=== PATIENT | male | born 1970 | race Hispanic/Latino ===

== ENCOUNTER 2022-03-07 08:26 | Emergency (ER) | payer SELFPAY ==
[2022-03-07] MEDS ORDERED: NA CHLORIDE 0.9% 1,000 ML ONE (08:57)
[2022-03-07] MEDS ORDERED: ONDANSETRON 4 MG/2 ML VIAL ONE (08:57)
[2022-03-07] MEDS ORDERED: DICYCLOMINE HCL 10 MG CAP ONE (08:57)
[2022-03-07 08:58] LABS: Absolute Lymphocytes (CBC) 0.6 K/uL (0.7-4.9); Hematocrit 46.7 % (39.6-49.0); Lymphocytes % 7.3 % (15.3-44.8); MPV 9.1 fL (7.6-11.3); RBC Red Blood Cell Count 5.02 M/uL (4.33-5.43)
[2022-03-07 09:38] LABS: Potassium 3.4 mmol/L (3.5-5.1)
[2022-03-07] MEDS ORDERED: Ringers Lactate 1,000 ML IV ONE (10:14)
--- NOTE | 2022-03-07 11:58 | ER ---
Nurse's Notes [facility] Name: Niall Alvarenga Age: 51 yrs Sex: Male : 1970 Arrival Date: 03/07/2022 Time: 08:26 Bed 7 Private MD: Diagnosis: Volume depletion, unspecified;Rhabdomyolysis Presentation: 03/07 08:34 Chief complaint: Patient states: vomiting last night and this morning and has abd pain iw from vomiting, felt feverish. Coronavirus screen: Client presents with at least one sign or symptom that may indicate coronavirus-19. Ebola Screen: Patient negative for fever greater than or equal to 101.5 degrees Fahrenheit, and additional compatible Ebola Virus Disease symptoms Patient denies exposure to infectious person. Patient denies travel to an Ebola-affected area in the 21 days before illness onset. No symptoms or risks identified at this time. Initial Sepsis Screen: Does the patient meet any 2 criteria? No. Patient's initial sepsis screen is negative. Does the patient have a suspected source of infection? No. Patient's initial sepsis screen is negative. Risk Assessment: Do you want to hurt yourself or someone else? Patient reports no desire to harm self or others. Onset of symptoms was March 06, 2022. 08:34 Method Of Arrival: Wheelchair iw 08:34 Acuity: DIRK 3 iw Historical: - Allergies: 08:35 Demerol; iw - Home Meds: 08:35 None [Active]; iw - PMHx: 08:35 colon cancer; iw - PSHx: 08:35 colon resection; iw - Immunization history:: Client reports receiving the 2nd dose of the Covid vaccine. - Social history:: Smoking status: Patient reports the use of cigarette tobacco products, smokes one-half pack cigarettes per day. Screenin:50 Abuse screen: Denies threats or abuse. Nutritional screening: No deficits noted. aa5 Tuberculosis screening: No symptoms or risk factors identified. Fall Risk None identified. Assessment: 08:45 General: Appears uncomfortable, Behavior is calm, cooperative. Pain: Complains of pain aa5 in abdomen Pain currently is 6 out of 10 on a pain scale. Quality of pain is described as crampy, Pain began 1 day ago. Is continuous. Neuro: Level of Consciousness is awake, alert, obeys commands, Oriented to person, place, time, situation. Cardiovascular: Heart tones S1 S2 present Rhythm is regular. Respiratory: Airway is patent Respiratory effort is even, unlabored, Respiratory pattern is regular, symmetrical. GI: Abdomen is flat, non-distended, Bowel sounds present X 4 quads. Abd is soft and non tender X 4 quads. Reports nausea, vomiting. : No signs and/or symptoms were reported regarding the genitourinary system. EENT: No signs and/or symptoms were reported regarding the EENT system. Derm: Skin is dry, Skin is normal, Skin temperature is warm. Musculoskeletal: Range of motion: intact in all extremities. 09:40 Reassessment: Pt sleeping, pt easily awaken by verbal stimuli, pt states feeling aa5 better, denies nausea, denies pain. . General: Appears comfortable. Neuro: Level of Consciousness is awake, alert, obeys commands, Oriented to person, place, time, situation. Respiratory: Airway is patent Respiratory effort is even, unlabored, Respiratory pattern is regular, symmetrical. Derm: Skin is dry, Skin is normal, Skin temperature is warm. 10:10 Reassessment: Pt sleeping, respirations relaxed, skin is normal/warm/dry. . aa5 11:00 Reassessment: Patient appears in no apparent distress at this time. Patient and/or jd3 family updated on plan of care and expected duration. Pain level reassessed. Patient is alert, oriented x 3, equal unlabored respirations, skin warm/dry/pink. pt resting in bed. PO fluids give to pt for PO challenge. no reports of nausea at this time. Vital Signs: 08:34 BP 148 / 86; Pulse 56; Resp 16; Temp 98.8(O); Pulse Ox 100% on R/A; Weight 69.4 kg; iw Height 5 ft. 4 in. (162.56 cm); 09:41 BP 140 / 88; Pulse 50; Resp 14 S; Pulse Ox 100% on R/A; aa5 11:00 BP 138 / 82; Pulse 55; Resp 18 S; Pulse Ox 100% on R/A; jd3 12:17 BP 131 / 81; Pulse 80; Resp 18; Temp 98.3; Pulse Ox 99% on R/A; bh1 08:34 Body Mass Index 26.26 (69.40 kg, 162.56 cm) iw ED Course: 08:26 Patient arrived in ED. rg4 08:32 Ayleen Garnett, [facility]. kb 08:32 Memo Tejeda MD is Attending Physician. kb 08:32 Milo Nelson MD is Attending Physician. kb 08:35 Triage completed. iw 08:43 Marisol Garsia, RN is Primary Nurse. aa5 08:45 Patient has correct armband on for positive identification. Bed in low position. Call aa5 light in reach. Side rails up X 1. Pulse ox on. NIBP on. 08:48 Initial lab(s) drawn, by me, sent to lab. Inserted saline lock: 20 gauge in right aa5 antecubital area, using aseptic technique. Blood collected. 12:17 IV discontinued, intact, bleeding controlled, No redness/swelling at site. bh1 12:20 No provider procedures requiring assistance completed. bh1 12:20 Arm band placed on. bh1 Administered Medications: 08:50 Drug: NS 0.9% 1000 ml Route: IV; Rate: 1000 ml; Site: right antecubital; aa5 09:40 Follow up: IV Status: Completed infusion; IV Intake: 1000ml aa5 12:21 Follow up: IV Status: Completed infusion; IV Intake: 1000ml bh1 08:50 Drug: Zofran (Ondansetron) 4 mg Route: IVP; Site: right antecubital; aa5 08:55 Follow up: Response: No adverse reaction aa5 08:52 Drug: Bentyl (dicyclomine) 20 mg Route: PO; aa5 09:40 Follow up: Response: No adverse reaction; Marked relief of symptoms aa5 10:10 Drug: Lactated Ringers Solution 1000 ml Route: IV; Rate: 1 bolus; Site: right aa5 antecubital; 12:20 Follow up: IV Status: Completed infusion; IV Intake: 2000ml bh1 Medication: 12:20 VIS not applicable for this client. bh1 Intake: 09:40 IV: 1000ml; Total: 1000ml. aa5 12:20 IV: 2000ml; Total: 3000ml. bh1 12:21 IV: 1000ml; Total: 4000ml. bh1 Outcome: 11:58 Discharge ordered by . kb 12:16 Discharged to home ambulatory. bh1 12:16 Discharged to home ambulatory. 12:16 Condition: good 12:16 Discharge instructions given to patient, Instructed on discharge instructions, follow up and referral plans. medication usage, Demonstrated understanding of instructions, follow-up care, medications, Prescriptions given X 1. 12:21 Patient left the ED. 1 Signatures: Ayleen Garnett, VALUE STREAM COACH-C VALUE STREAM COACH-Ckb Buffy Ojeda, RN RN iw Marisol Garsia RN RN aa5 Susie [id number] Brayden Bailon RN RN jd3 Beatris Snell RN RN 1
--- NOTE | 2022-03-07 11:58 | EDPHYS ---
Physician Documentation [facility] Name: Niall Alvarenga Age: 51 yrs Sex: Male : 1970 Arrival Date: 03/07/2022 Time: 08:26 Bed 7 Private MD: ED Physician Milo Nelson HPI: 03/07 08:57 This 51 yrs old Male presents to ER via Wheelchair with complaints of kb Dehydration,Shaking. 09:21 The patient presents to the emergency department with nausea, vomiting. Onset: The kb symptoms/episode began/occurred yesterday. Possible causes: getting overheated. The symptoms are aggravated by nothing. The symptoms are alleviated by nothing. Associated signs and symptoms: Pertinent positives: abdominal pain, nausea, vomiting, Pertinent negatives: fever. Severity of symptoms: At their worst the symptoms were moderate in the emergency department the symptoms are unchanged. The patient has experienced similar episodes in the past, a few times. The patient has not recently seen a physician. Pt states he got overheated yesterday while working, then began vomiting last night. States he has had this happen in the past due to overheating and dehydration. States he has diffuse abd pain now from vomiting. Historical: - Allergies: 08:35 Demerol; iw - Home Meds: 08:35 None [Active]; iw - PMHx: 08:35 colon cancer; iw - PSHx: 08:35 colon resection; iw - Immunization history:: Client reports receiving the 2nd dose of the Covid vaccine. - Social history:: Smoking status: Patient reports the use of cigarette tobacco products, smokes one-half pack cigarettes per day. ROS: 08:56 Constitutional: Negative for fever, chills, and weight loss. kb 08:56 Abdomen/GI: Positive for abdominal pain, nausea and vomiting, Negative for diarrhea, constipation. 08:56 All other systems are negative. Exam: 08:56 Constitutional: This is a well developed, well nourished patient who is awake, alert, kb and in no acute distress. Head/Face: Normocephalic, atraumatic. ENT: Moist Mucous membranes Cardiovascular: Regular rate and rhythm with a normal S1 and S2. No gallops, murmurs, or rubs. No pulse deficits. Respiratory: Respirations even and unlabored. No increased work of breathing. Talking in full sentences Skin: Warm, dry with normal turgor. Normal color. MS/ Extremity: Pulses equal, no cyanosis. Neurovascular intact. Full, normal range of motion. Neuro: Awake and alert, GCS 15, oriented to person, place, time, and situation. Moves all extremities. Normal gait. Psych: Awake, alert, with orientation to person, place and time. Behavior, mood, and affect are within normal limits. 08:56 Abdomen/GI: Inspection: abdomen appears normal, Bowel sounds: normal, Palpation: soft, in all quadrants, mild abdominal tenderness, in all quadrants. Vital Signs: 08:34 BP 148 / 86; Pulse 56; Resp 16; Temp 98.8(O); Pulse Ox 100% on R/A; Weight 69.4 kg; iw Height 5 ft. 4 in. (162.56 cm); 09:41 BP 140 / 88; Pulse 50; Resp 14 S; Pulse Ox 100% on R/A; aa5 11:00 BP 138 / 82; Pulse 55; Resp 18 S; Pulse Ox 100% on R/A; jd3 12:17 BP 131 / 81; Pulse 80; Resp 18; Temp 98.3; Pulse Ox 99% on R/A; bh1 08:34 Body Mass Index 26.26 (69.40 kg, 162.56 cm) iw MDM: 08:35 Patient medically screened. kb 08:56 Data reviewed: vital signs, nurses notes. Data interpreted: Pulse oximetry: on room air kb is 100 %. Interpretation: normal. 10:33 Counseling: I had a detailed discussion with the patient and/or guardian regarding: the kb historical points, exam findings, and any diagnostic results supporting the discharge/admit diagnosis, lab results, the need for outpatient follow up, a family practitioner, to return to the emergency department if symptoms worsen or persist or if there are any questions or concerns that arise at home. 11:57 ED course: Pt tolerating po intake. Educated to increase fluids and take breaks from kb the heat. . 03/07 08:38 Order name: CBC with Diff; Complete Time: 09:16 kb 03/07 08:38 Order name: Basic Metabolic Panel; Complete Time: 09:49 kb 03/07 08:38 Order name: CPK; Complete Time: 09:49 kb 03/07 08:38 Order name: IV Start; Complete Time: 08:56 kb 03/07 10:33 Order name: PO challenge; Complete Time: 10:58 kb Administered Medications: 08:50 Drug: NS 0.9% 1000 ml Route: IV; Rate: 1000 ml; Site: right antecubital; aa5 09:40 Follow up: IV Status: Completed infusion; IV Intake: 1000ml aa5 12:21 Follow up: IV Status: Completed infusion; IV Intake: 1000ml bh1 08:50 Drug: Zofran (Ondansetron) 4 mg Route: IVP; Site: right antecubital; aa5 08:55 Follow up: Response: No adverse reaction aa5 08:52 Drug: Bentyl (dicyclomine) 20 mg Route: PO; aa5 09:40 Follow up: Response: No adverse reaction; Marked relief of symptoms aa5 10:10 Drug: Lactated Ringers Solution 1000 ml Route: IV; Rate: 1 bolus; Site: right aa5 antecubital; 12:20 Follow up: IV Status: Completed infusion; IV Intake: 2000ml bh1 Disposition: 14:38 Co-signature as Attending Physician, Milo Nelson MD I agree with the assessment ma2 and plan of care. Disposition Summary: 03/07/22 11:58 Discharge Ordered Location: Home kb Condition: Stable kb Diagnosis - Volume depletion, unspecified kb - Rhabdomyolysis kb Followup: kb - With: Emergency Department - When: As needed - Reason: Worsening of condition Followup: kb - With: Private Physician - When: 2 - 3 days - Reason: Recheck today's complaints, Continuance of care, Re-evaluation by your physician Discharge Instructions: - Discharge Summary Sheet kb - Rhabdomyolysis kb - Dehydration, Adult, [id number] kb Forms: - Medication Reconciliation Form kb - Thank You Letter kb - Antibiotic Education kb - Prescription Opioid Use kb Prescriptions: - Zofran 4 mg Oral Tablet - take 1 tablet by ORAL route every 6 hours As needed; 20 tablet; Refills: 0, kb Product Selection Permitted Signatures: Dispatcher [employer] Ayleen Morales FNP-C FNP-Buffy Ward RN RN Marisol Garsia RN RN aa5 Milo Nelson MD MD mi2 Beatris Snell RN [facility]
[2022-03-07 12:38] VITALS: BP 131/81; TEMP 98.3; O2SAT 99
== END 2022-03-07 12:21 | disposition home or self-care (01) ==
LOC: ER 08:26
DX: E86.9 Volume depletion, unspecified (principal); M62.82 Rhabdomyolysis; F17.210 Nicotine dependence, cigarettes, uncomplicated; Z85.038 Personal history of other malignant neoplasm of large intestine; Z88.5 Allergy status to narcotic agent
CPT/HCPCS: 36415; 80048; 82550; 85025; 96361; 96374; 99284; J2405; J7030; J7120